=== PATIENT | male | born 1950 | race Caucasian/White ===

== ENCOUNTER → 2019-01-24 | Outpatient (REF) | payer MEDICARE ==
[~2019-01-24] MED LIST: AMLO5TAB6 PO; ASPI81TA26 PO; CIPR500T3 PO; CLAR1TAB2 PO; DOCU100C16 PO; FLOM0.4C39 PO; FOLI1TAB11 PO; FOLI800C PO; KEPP250T5 PO; LISI40TA PO; LISI40TA52 PO; PERCOCET PO; THIA100TA PO; VITA100066 PO; VITMTA PO
== END ==
LOC: M SMT 12:59
PROVIDERS: ATTEND Urology
DX: R97.20 Elevated prostate specific antigen [PSA] (principal); R39.9 Unspecified symptoms and signs involving the genitourinary system
CPT/HCPCS: 51798; 81002; 87086; G0463

== ENCOUNTER → 2019-02-04 | Outpatient (CLI) | payer MEDICARE ==
[~2019-02-04] MED LIST changes: -CIPR500T3 PO; -DOCU100C16 PO; -FOLI800C PO; -LISI40TA PO; -PERCOCET PO
== END ==
LOC: M SMT PRO 09:25
PROVIDERS: ATTEND Urology
DX: R97.20 Elevated prostate specific antigen [PSA] (principal); R39.9 Unspecified symptoms and signs involving the genitourinary system; Z53.8 Procedure and treatment not carried out for other reasons

== ENCOUNTER → 2019-02-18 | Outpatient (CLI) | payer MEDICARE ==
[~2019-02-18] MED LIST changes: +CIPR500T3 PO; +DOCU100C16 PO; +FOLI800C PO; +LISI40TA PO; +PERCOCET PO
--- NOTE | 2019-02-18 18:35 | REP ---
TRANSRECTAL PROSTATE ULTRASOUND WITH ULTRASOUND GUIDANCE FOR PROSTATE BIOPSY: Transrectal prostate ultrasound was performed. The prostate measures 3.7 x 3.1 x 4.9 cm for a total volume of 29.4 mL. Echo texture is heterogenous with scattered calcifications and small cysts. Seminal vesicles appear symmetrical. Ultrasound guidance was provided for Dr. Frost who performed ultrasound guided biopsy of the prostate. Electronically Signed by Kolton Rocha MD 02/20/2019 04:33 P
== END ==
LOC: M SMT PRO 09:05
PROVIDERS: ATTEND Urology
DX: C61 Malignant neoplasm of prostate (principal)
CPT/HCPCS: 55700; 76872; 76942; G0416

== ENCOUNTER 2019-05-20 12:45 | Inpatient (IN) | payer MEDICARE ==
[~2019-05-20] VITALS: Ht 182.9 cm; Wt 80.3 kg
[~2019-05-20 12:45] MED LIST changes: -CIPR500T3 PO; -DOCU100C16 PO; -FOLI800C PO; -LISI40TA PO; -PERCOCET PO
[2019-06-02] MEDS ORDERED: LISI40TA PO (08:16)
[2019-06-02] MEDS ORDERED: FOLI800C PO (08:19)
[2019-06-17] VITALS (7 sets, daily range): BP systolic 111–122; BP diastolic 62–81
[2019-06-17] MEDS ORDERED: HEPARIN SOD (PORCINE) 5000 UNITS/ML VIAL SQ ONE (06:00)
[2019-06-17] MEDS ORDERED: ceFAZolin SOD 2 GM in IV 1 EA IV ONE (06:00)
[2019-06-17] MEDS ORDERED: ROCURONIUM BROMIDE 50 MG/5 ML VIAL As Ordered ONE ×3 (09:45→14:52)
[2019-06-17] MEDS ORDERED: LIDOCAINE 2% INJ 100 MG/5 ML SDV (FOR ANES.) As Ordered ONE (09:45)
[2019-06-17] MEDS ORDERED: dexameTHASONE 4 MG/ML 1ML VIAL (J1100) As Ordered ONE (09:46)
[2019-06-17] MEDS ORDERED: propofoL 200 MG/20 ML VIAL As Ordered ONE (09:46)
[2019-06-17] MEDS ORDERED: ONDANSETRON 4MG/2ML VIAL (J2405) As Ordered ONE (09:46)
[2019-06-17] MEDS ORDERED: MIDAZOLAM INJ 2 MG/2 ML VIAL (J2250) As Ordered ONE (11:23)
[2019-06-17] MEDS ORDERED: fentaNYL 250 MCG/5 ML INJECTION (J3010) As Ordered ONE ×2 (11:23→13:10)
[2019-06-17] MEDS ORDERED: LIDOCAINE 1% SDV INJ 30 ML VIAL As Ordered ONE (11:27)
[2019-06-17] MEDS ORDERED: BUPIVACAINE HCL 0.25% 30 ML VIAL As Ordered ONE (11:27)
[2019-06-17] MEDS ORDERED: ACETAMINOPHEN 1000MG 100ML IV BTL (OFIRMEV) (J0131 PER 10MG) As Ordered ONE (12:17)
[2019-06-17] MEDS ORDERED: PHENYLephrine HCL 500 MCG/5 ML (100MCG/ML) SYRINGE (J2370) As Ordered ONE (12:25)
[2019-06-17] MEDS ORDERED: LABETALOL HCL 100 MG/20 ML VIAL As Ordered ONE (13:12)
[2019-06-17] MEDS ORDERED: SUGAMMADEX SODIUM 500 MG/5 ML VIAL (BRIDION) As Ordered ONE (14:21)
[2019-06-17] MEDS ORDERED: KETOROLAC 60 MG/2 ML VIAL (J1885) As Ordered ONE (15:03)
[2019-06-17] MEDS ORDERED: HYDROmorphone HCL 2 MG/ML 1ML VIAL (J1170) As Ordered ONE (15:20)
[2019-06-17] MEDS ORDERED: fentaNYL 100 MCG/2 ML INJECTION (J3010) IV PRN (16:00)
[2019-06-17] MEDS ORDERED: ACETAMINOPHEN TAB 650MG DOSE (2X325MG) PO PRN (16:00)
[2019-06-17] MEDS ORDERED: ONDANSETRON 4MG/2ML VIAL (J2405) IV PRN ×2 (16:00)
[2019-06-17] MEDS ORDERED: PERCOCET 5MG/325MG TAB PO PRN ×3 (16:00)
[2019-06-17] MEDS ORDERED: MORPHINE 2 MG/ML 1ML VIAL (J2270) IV PRN (16:00)
[2019-06-17] MEDS ORDERED: LR 1,000 ML IV SCH (16:00)
[2019-06-17] MEDS ORDERED: METOCLOPRAMIDE INJ 10MG/2ML VIAL (J2765) IV PRN (16:00)
--- NOTE | 2019-06-17 16:15 | ROOPDOC ---
[facility] Report Of Operation Report of Operation DATE OF PROCEDURE: 06/17/19 PREPROCEDURE DIAGNOSES: Prostate Cancer. POSTPROCEDURE DIAGNOSES: Prostate Cancer. PROCEDURE: Robotic-assisted Laparoscopic Radical Prostatectomy with Bilateral Pelvic Lymph Node Dissection. SURGEON: Quang Lim MD [employer]: Linnette Thomson NP ANESTHESIA: General. OPERATIVE INDICATIONS: This is a 68 year old male with clinical T1c [place] 3+4 prostate cancer, here today for treatment. DESCRIPTION OF PROCEDURE: The patient was brought to the operating room and general anesthesia was induced. Prophylactic antibiotics were infused. He was then placed in the supine position and prepped and draped in the usual sterile fashion. At this point, a Loyd catheter was inserted into the bladder and the balloon was filled with 10 mL of sterile water. We then made a midline incision just above the umbilicus for an 8 mm port. A Veress needle was utilized to achieve pneumoperitoneum. Next, an 8 mm port was inserted into the incision and subsequently a camera was inserted. There were no injuries from the Veress needle or initial trocar placement. Then three robotic ports were placed in the usual configuration in line just below the level of the umbilicus. An 12 mm assistant to the vice president port was inserted lateral to the camera port. Once all the ports were placed, the robot was docked. Additional lysis of adhesions between the sigmoid colon and abdominal wall was then performed. The bladder was then released from the anterior abdominal wall using electrocautery. Once the bladder was dropped, the fat overlying the prostate was cleared using electrocautery. The superficial dorsal vein was controlled with electrocautery. The endopelvic fascia was opened on both sides and the dorsal venous complex was cleared. Next, a #0 Vicryl [id number] stitch was placed around the dorsal venous complex. Once that was done, the bladder was opened and dissected away from the prostate. At this point, the prostate was lifted up. The vasa deferentia were identified in the midline. They were controlled with electrocautery and then transected. The seminal vesicles were also dissected bilaterally. The rectum was safely mobilized away from the prostate. At this point I ligated and transected bilateral prostatic pedicles using the Harmonic scalpel. The pedicles were carried towards the apex. After taking care of the pedicles and mobilizing the rectum off the prostate below, the prostate was only connected by the urethra. At this point, the dorsal venous complex was transected with electrocautery. The urethra was then opened and the catheter was withdrawn and the posterior urethra was transected, thus freeing the prostate. At this point, we checked for hemostasis and it appeared very good. Next, we performed bilateral pelvic lymph node dissection. This was done in a standard fashion. The limits of dissection were the iliac vein proximally, the obturator nerve distally, the pelvic sidewall laterally, and the bladder medially. All lymphatic tissue within these limits was removed. I performed the same procedure on both the right and left sides. Hemostasis was then obtained with a combination of bipolar electrocautery and Weck clips. The lymphatic packets were then placed in separate Endo Catch bags for future retrieval. Once hemostasis was confirmed, I then moved on to perform the vesicourethral anastomosis. The vesicourethral anastomosis was performed in running fashion using a Quill stitch. Once this was done, the final #20-[place] Loyd catheter was placed. The balloon was filled with 15 mL of sterile water. Upon completion of the vesicourethral anastomosis, it was tested by filling the bladder with sterile water. The anastomosis appeared to be watertight. At this point, the prostate and seminal vesicles were placed in an Endo Catch bag for future retrieval. A Kerwin-Ruvalcaba drain was brought in through the left robotic port skin site and the drain was positioned anterior to the bladder. The robot was then undocked. A Charles-Clarisa fascial closure device was utilized to place a #0 Vicryl suture through the fascia of the 12 mm assistant to the vice president port. The drain was secured to the skin with #2-0 Ethilon suture. The prostate, as well as the lymphatic packets were then extracted from the camera port site after the skin was extended. The fascia in this incision was then closed with a running #0 Vicryl stitch. Next, all the remaining ports were removed and there did not appear to be any bleeding from any of the port sites. The previously placed #0 Vicryl free ties through the assistant to the vice president port were then tied down and all incisions were irrigated. Last, all of the incisions were closed with running subcuticular #4-0 Monocryl sutures. Local anesthesia was applied. Dermabond was then applied to the incisions. This marked the conclusion of the procedure. The patient was then awakened from anesthesia and transported to the recovery room in stable condition. ESTIMATED BLOOD LOSS: 50 mL. COMPLICATIONS: None. SPECIMENS: Prostate and seminal vesicles, right pelvic lymph nodes, left pelvic lymph nodes. PLAN: The patient will be admitted to the hospital postoperatively, and he will likely be discharged home within the next 1-2 days. QUANG LIM MD Jun 17, 2019 16:15
[2019-06-17 16:35] LABS: HEMATOCRIT 34.4 % (42.0-52.0); HEMOGLOBIN 11.1 g/dl (13.5-17.5); MEAN CORPUSCULAR HEMOGLOBIN 30.3 pg (27.0-33.0); MEAN CORPUSCULAR HGB CONC 32.3 g/dl (32.0-36.5); PLATELET COUNT, AUTOMATED 342 10^3/uL (150-450); RED BLOOD COUNT 3.66 10^6/uL (4.30-6.10); WHITE BLOOD COUNT 16.9 10^3/uL (4.0-10.0)
[2019-06-17 16:56] LABS: BLOOD UREA NITROGEN 15 MG/DL (7-18); CALCIUM LEVEL 8.5 MG/DL (8.8-10.2); CARBON DIOXIDE LEVEL 25 MEQ/L (21-32); CHLORIDE LEVEL 102 MEQ/L (98-107); CREATININE FOR GFR 0.99 MG/DL (0.70-1.30); GLOMERULAR FILTRATION RATE > 60.0 (>49); GLUCOSE, FASTING 167 MG/DL (70-100); POTASSIUM SERUM 4.5 MEQ/L (3.5-5.1); SODIUM LEVEL 135 MEQ/L (136-145)
[2019-06-17] MEDS: lisinopriL 40 MG TAB PO SCH (18:13)
[2019-06-17] MEDS: NS 1,000 ML IV SCH (18:13)
[2019-06-17] MEDS: ceFAZolin SOD 1 GM in D5W MINI-BAG PLUS 50 ML IV SCH (20:11)
[2019-06-17] MEDS: DOCUSATE SODIUM 100 MG CAP PO SCH (20:11)
[2019-06-17] MEDS: HEPARIN SOD (PORCINE) 5000 UNITS/ML VIAL SC SCH (21:54)
[2019-06-18 01:25] VITALS: O2SAT 97
[2019-06-18 02:00] VITALS: BP 112/66
[2019-06-18] MEDS: NS 1,000 ML IV SCH (02:22)
[2019-06-18] MEDS: ceFAZolin SOD 1 GM in D5W MINI-BAG PLUS 50 ML IV SCH (04:20)
[2019-06-18] MEDS: HEPARIN SOD (PORCINE) 5000 UNITS/ML VIAL SC SCH ×2 (05:23→14:00)
[2019-06-18 06:00] VITALS: BP 121/70
[2019-06-18 06:12] LABS: HEMATOCRIT 31.2 % (42.0-52.0); HEMOGLOBIN 10.3 g/dl (13.5-17.5); MEAN CORPUSCULAR HEMOGLOBIN 30.9 pg (27.0-33.0); MEAN CORPUSCULAR VOLUME 93.7 fl (80.0-96.0); PLATELET COUNT, AUTOMATED 328 10^3/uL (150-450); RED BLOOD COUNT 3.33 10^6/uL (4.30-6.10); WHITE BLOOD COUNT 12.3 10^3/uL (4.0-10.0)
[2019-06-18 06:41] LABS: BLOOD UREA NITROGEN 14 MG/DL (7-18); CARBON DIOXIDE LEVEL 23 MEQ/L (21-32); CHLORIDE LEVEL 99 MEQ/L (98-107); CREATININE FOR GFR 0.79 MG/DL (0.70-1.30); GLOMERULAR FILTRATION RATE > 60.0 (>49); GLUCOSE, FASTING 109 MG/DL (70-100); POTASSIUM SERUM 4.3 MEQ/L (3.5-5.1); SODIUM LEVEL 131 MEQ/L (136-145)
[2019-06-18] MEDS: lisinopriL 40 MG TAB PO SCH (08:41)
[2019-06-18] MEDS: DOCUSATE SODIUM 100 MG CAP PO SCH (08:42)
[2019-06-18 09:00] VITALS: O2SAT 96
[2019-06-18 10:00] VITALS: BP 142/70
--- NOTE | 2019-06-18 10:22 | IPNPDOC ---
Subjective Review oF Systems Chief Complaint The patient is a 68-year-old male admitted with a reason for visit of Prostate Cancer. Events since Last Encounter No acute events o/n. Patient notes minimal pain. No n/v. No f/c/ns. Objective Physical Examination General Exam: Alert, Cooperative, No Acute Distress ABDOMEN EXAM: Soft, Tenderness (mild), Other (incisions clean/dry/intact; FRANCISCO w/ serous output) Neuro Exam: Normal Speech Psych Exam: Mental status NL, Mood NL Other physical findings catheter draining clear urine Vital Signs/I&O Vital Signs Date Time Temp Pulse Resp B/P (MAP) Pulse Ox O2 Delivery O2 Flow Rate FiO2 06/18/19 06:00 98.2 76 17 121/70 (87) 98 Nasal Cannula 1.0 I&O- Last 24 Hours up to 6 AM 06/18/19 06:00 Intake Total 2020 ml Output Total 345 ml Balance 1675 ml Laboratory Data Labs 24H Laboratory Tests 2 06/17/19 16:10: Nucleated Red Blood Cells % (auto) 0.0, Anion Gap 8, Glomerular Filtration Rate > 60.0, Calcium Level 8.5L 06/18/19 05:32: Nucleated Red Blood Cells % (auto) 0.0, Anion Gap 9, Glomerular Filtration Rate > 60.0, Calcium Level 8.0L CBC/BMP Laboratory Tests 06/17/19 16:10 06/18/19 05:32 Assessment/Plan Date Seen The patient was seen on 06/18/19. Patient Summary This is a 68 y/o M POD1 s/p RALP w/ BPLND. He is doing well. Good UOP. Minimal FRANCISCO output. Plan/VTE VTE Prophylaxis Ordered?: Yes VTE Exclusion Mechanical Proph: N/A:VTE Prophy Ordered VTE Exclusion Pharmacological: N/A:VTE Prophy Ordered Plan/Urinary Catheter Urinary Catheter: Other Catheter: (catheter will need to stay in for at least 7 days for healing of vesicourethral anastomosis) Plan - d/c IVF - percocet prn pain - cont home meds - strict I/Os - SCDs when in bed - SQH - incentive spirometry - ambulate as tolerated - advance diet as tolerated - likely discharge home later today w/ catheter (will remove FRANCISCO drain prior to discharge) QUANG LIM MD Jun 18, 2019 10:21
[2019-06-18] MEDS ORDERED: CIPR500T3 PO (14:15)
[2019-06-18] MEDS ORDERED: PERCOCET PO (14:15)
[2019-06-18] MEDS ORDERED: DOCU100C16 PO (14:15)
--- NOTE | 2019-06-18 18:30 | DSES ---
DATE OF ADMISSION: 06/17/2019 DATE OF DISCHARGE: 06/18/2019 ADMISSION DIAGNOSIS: Prostate cancer. DISCHARGE DIAGNOSIS: Prostate cancer. ADMITTING PHYSICIAN: Korey Frost MD DISCHARGING PHYSICIAN: Korey Frost MD PROCEDURES PERFORMED: Robotic-assisted laparoscopic radical prostatectomy with bilateral pelvic lymph node dissection on 06/17/2019. HISTORY OF PRESENT ILLNESS: This is a 68-year-old male with prostate cancer who underwent the above-listed procedure. He was admitted to the hospital postoperatively. HOSPITAL COURSE: The patient was admitted to the hospital after undergoing a robotic-assisted radical prostatectomy with bilateral pelvic lymph node dissection. His postoperative course was unremarkable. On postoperative day one, all of his blood work was within acceptable limits. He had very good pain control with oral pain medications. He had excellent urine output and minimal output from his Kerwin-Ruvalcaba drain. He was able to ambulate well without any difficulty. His diet was advanced to a regular diet and he tolerated diet without any nausea. Since his Kerwin-Ruvalcaba drain output was minimal, it was removed on postoperative day one. He was deemed ready for discharge home on postoperative day one. He was discharged home with his catheter in place with the plan for him to followup in the clinic in one week for catheter removal and to discuss his pathology results. JOHN
== END 2019-06-18 15:24 | disposition home or self-care (01) | DRG 708 ==
LOC: M OR 06-17 10:15 → M MSPAV 06-17 17:32
PROVIDERS: ADMIT Urology; ATTEND Urology
PROC: 07BC4ZZ Excision of Pelvis Lymphatic, Percutaneous Endoscopic Approach (ICD-10-PCS; 2019-06-17)
PROC: 8E0W4CZ Robotic Assisted Procedure of Trunk Region, Percutaneous Endoscopic Approach (ICD-10-PCS; 2019-06-17)
PROC: 0VT04ZZ Resection of Prostate, Percutaneous Endoscopic Approach (ICD-10-PCS; principal; 2019-06-17 12:35)
DX: C61 Malignant neoplasm of prostate (principal)

== ENCOUNTER → 2022-07-27 | Outpatient (CLI) | payer MEDICARE ==
[~2022-07-27] MED LIST changes: +AMLO1TAB24 PO; -AMLO5TAB6 PO; +ATOR40TA75 PO; +CIPR500T3 PO; +CLOP75TA2 PO; +DOCU100C16 PO; +FOLI800C PO; +KP F1200 PO; +LISI40TA4 PO; +PERCOCET PO; +VITA100093 PO
== END ==
LOC: M LABSMTC 07:59
PROVIDERS: ATTEND Anesthesiology
DX: Z01.812 Encounter for preprocedural laboratory examination (principal); Z11.52 Encounter for screening for COVID-19

== ENCOUNTER 2022-08-01 06:18 | Day surgery (SDC) | payer MEDICARE ==
[~2022-08-01] VITALS: Ht 182.9 cm; Wt 68.0 kg
[~2022-08-01 06:18] MED LIST changes: +ceFAZolin SOD 2 GM in IV 1 EA IV ONE
[2022-08-01] MEDS ORDERED: ECOT81TA5 PO (06:39)
[2022-08-01] MEDS ORDERED: BUPIVACAINE/EPIN 0.25% 30ML VIAL As Ordered ONE (07:18)
[2022-08-01] MEDS ORDERED: ROCURONIUM BROMIDE 50MG/5ML VIAL As Ordered ONE (07:20)
[2022-08-01] MEDS ORDERED: ONDANSETRON 4MG 2ML VIAL As Ordered ONE (07:20)
[2022-08-01] MEDS ORDERED: SUGAMMADEX SODIUM 500 MG/5 ML VIAL (BRIDION) As Ordered ONE (07:20)
[2022-08-01] MEDS ORDERED: propofoL 200 MG/20 ML VIAL As Ordered ONE (07:20)
[2022-08-01] MEDS ORDERED: LIDOCAINE 2% 100MG/5ML SDV (FOR ANES.) As Ordered ONE (07:20)
[2022-08-01] MEDS ORDERED: KETOROLAC 60MG 2ML VIAL As Ordered ONE (07:20)
[2022-08-01] MEDS ORDERED: fentaNYL 100 MCG/2 ML INJECTION As Ordered ONE (07:21)
[2022-08-01] MEDS ORDERED: MIDAZOLAM INJ 2MG/2ML VIAL As Ordered ONE (07:21)
[2022-08-01] MEDS ORDERED: LR 1,000 ML IV SCH ×2 (07:50→09:20)
[2022-08-01] MEDS ORDERED: ONDANSETRON 4MG 2ML VIAL IV PRN (09:20)
[2022-08-01] MEDS ORDERED: oxyCODONE 5MG TAB PO PRN (09:20)
[2022-08-01] MEDS ORDERED: fentaNYL 100 MCG/2 ML INJECTION IV PRN (09:20)
[2022-08-01] MEDS ORDERED: HYDROMORPHONE HCL 0.5 MG/ 0.5 ML SYRINGE IV PRN (09:20)
[2022-08-01 10:51] VITALS: BP 117/66
== END 2022-08-01 11:15 | disposition home or self-care (01) ==
LOC: M SDC 06:18
PROVIDERS: ATTEND Surgery
DX: K40.90 Unilateral inguinal hernia, without obstruction or gangrene, not specified as recurrent (principal); I10 Essential (primary) hypertension; E78.5 Hyperlipidemia, unspecified; I73.9 Peripheral vascular disease, unspecified; J44.9 Chronic obstructive pulmonary disease, unspecified; Z87.891 Personal history of nicotine dependence; Z79.02 Long term (current) use of antithrombotics/antiplatelets; Z88.8 Allergy status to other drugs, medicaments and biological substances; Z79.899 Other long term (current) drug therapy
CPT/HCPCS: 49650; C1781; J0690; J1100; J2250; J2405; J3010; S2900